=== PATIENT | male | born 1945 | race Caucasian/White ===

== ENCOUNTER → 2018-10-04 | Outpatient (CLI) | payer OTHER ==
[~2018-10-04] MED LIST: ASPIRIN325 PO; ASPIRIN81 M2 PO; BAYER CHEWABLE81 MG PO; CENTRUM SILVER1 EAC4 PO; CEPHALEXIN 500500 M1 PO; CO Q-10100 MG PO; COZAAR 50 MG TA50 MG PO; COZAAR100 MG PO; CYTOXAN IV; DOCETAXEL IV; EFFIENT10 MG PO; FUROSEMIDE PO; KLOR-CON 10 ER10 MEQ PO; LIPITOR40 MG PO; MECLIZINE HCL12.5 MG PO; MELADOX3 MG PO; METOPROLOL SUCC25 M1 PO; NITROGLYCERIN0.4 MG SUBLING; NOLVADEX10 MG PO; NORCO 5-325 TA1 EACH PO; PROMETHAZINE-C120 ML PO; SUPER B COMPLE1 EAC3 PO; TYLENOL EX-STR500 M2 PO; TYLENOL325 MG PO; ZOFRAN ODT4 MG PO; ZPAK PO
== END ==
LOC: ULTRA 13:37
DX: R22.1 Localized swelling, mass and lump, neck (principal)

== ENCOUNTER → 2018-10-10 | Outpatient (CLI) | payer OTHER ==
--- NOTE | ~2018-10-10 | PATH ---
[facility] [place] [address] PATHOLOGY RPT PROCEDURE Name: JEANINE DUBOSE Room #: REG [facility]#: [id number] Admission: 10/10/18 Date of : 45 Discharge: Report #: [id number] Path Case #: [id number] Note LCA Accession Number: [id number] TESTS RESULT FLAG UNITS REF RANGE LAB Clinician Provided Cytology Information No. of containers..01 ThinPrep Vial Source: 01 RT SUPERIOR PAROTID DIAGNOSIS: 02 RT SUPERIOR PAROTID, FINE NEEDLE ASPIRATION NEGATIVE FOR MALIGNANT CELLS. RED BLOOD CELLS ARE PRESENT. THIS INTERPRETATION INCLUDES EVALUATION OF A CELL BLOCK. GROUPS OF ACINAR CELLS, COMPATIBLE WITH SALIVARY GLAND PARENCHYMAL CELLS. Comment: Examination shows few groups of acinar cells. Stroma or matrix is not identified in the background. The cells are bland with no definite features to suggest malignant cells. The cells may represent salivary gland cells rather than a neoplasm. Sample may not be risk control representative; please correlate clinically and follow up as indicated. Signed out by: 02 Giulia Agudelo MD, Pathologist NPI- [id number] Performed by: 01 Aubrie Laughlin, Wharf Hand ([facility]) Gross description: 01 6ML, PINK, CLOUDY /LCS FLAG LEGEND: L-Low Normal,H-High Normal,LL-Alert Low,HH-Alert High <-Panic Low,>-Panic High,A-Abnormal,AA-Critical Abnormal Performed at: 01 [facility] [address] [place] [address] Ten Bonilla MD, [address] [address] Giulia Agudelo MD, Specimen Comment: A courtesy copy of this report has been sent to Specimen Comment: [phone]. Specimen Comment: Report sent to Performed at: [address] [address] PATHOLOGY RPT PROCEDURE Name: JEANINE DUBOSE Room #: REG RACHEAL Atkinson#: [id number] Admission: 10/10/18 Date of : 45 Discharge: Report #: [id number] Path Case #: [id number] [address], [place], [place] [id number] MD Ten Bonilla MD Phone: [phone]
--- NOTE | ~2018-10-10 | PATH ---
[facility] [address] [place] [address] PATHOLOGY RPT PROCEDURE Name: JEANINE DUBOSE Room #: REG [facility]#: [id number] Admission: 10/10/18 Date of : 45 Discharge: Report #: [id number] Path Case #: [id number] Note LCA Accession Number: [id number] TESTS RESULT FLAG UNITS REF RANGE LAB Clinician Provided Cytology Information No. of containers..01 ThinPrep Vial Source: RT PAROTID INF DIAGNOSIS: 02 RIGHT PAROTID INF, FINE NEEDLE ASPIRATION INADEQUATE, INSUFFICIENT CELLS FOR STUDY. ESSENTIALLY ACELLULAR SPECIMEN. CELL BLOCK PREPARED AND EXAMINED. Comment: Examination of multiple smears shows a rare single group of acinar-like cells. There is no matrix or stroma. Findings are inconclusive. Please correlate clinically. Signed out by: 02 Giulia Agudelo MD, Pathologist NPI- [id number] Performed by: 01 Aubrie Laughlin, Mortgage Loan Officer ([facility]) Gross description: 01 22ML, PINK, CLOUDY /LCS FLAG LEGEND: L-Low Normal,H-High Normal,LL-Alert Low,HH-Alert High <-Panic Low,>-Panic High,A-Abnormal,AA-Critical Abnormal Performed at: [address] [place] [address] Ten Bonilla MD, [address] [place] [id number] Giulia Agudelo MD, Specimen Comment: A courtesy copy of this report has been sent to Specimen Comment: [phone]. Specimen Comment: Report sent to Performed at: [address], [place], [place] [id number] MD Ten Bonilla MD Phone: [phone]
== END | disposition home or self-care (01) ==
LOC: ULTRA 09:15
DX: K11.8 Other diseases of salivary glands (principal); E11.9 Type 2 diabetes mellitus without complications; I25.10 Atherosclerotic heart disease of native coronary artery without angina pectoris; Z88.6 Allergy status to analgesic agent; Z79.82 Long term (current) use of aspirin; Z79.899 Other long term (current) drug therapy; Z85.3 Personal history of malignant neoplasm of breast; Z82.49 Family history of ischemic heart disease and other diseases of the circulatory system; Z79.4 Long term (current) use of insulin

== ENCOUNTER → 2020-07-09 | Outpatient (CLI) | payer OTHER | LOC: SJCVC 09:32 | PROVIDERS: ATTEND Internal Medicine Cardiovascular Disease | DX: R94.31 Abnormal electrocardiogram [ECG] [EKG] (principal); I25.10 Atherosclerotic heart disease of native coronary artery without angina pectoris; I73.9 Peripheral vascular disease, unspecified; E78.00 Pure hypercholesterolemia, unspecified; I10 Essential (primary) hypertension; E11.9 Type 2 diabetes mellitus without complications; R55 Syncope and collapse; E78.2 Mixed hyperlipidemia; Z79.899 Other long term (current) drug therapy; Z87.891 Personal history of nicotine dependence ==

== ENCOUNTER 2020-07-15 08:35 | Observation (INO) | payer OTHER ==
[~2020-07-15] VITALS: Ht 175.3 cm; Wt 97.5 kg
[2020-07-15 09:00] VITALS: BP 140/73
[2020-07-15] MEDS ORDERED: GLIMEPIRIDE4 MG PO (09:20)
[2020-07-15] MEDS ORDERED: LEVO-T50 MCG PO (09:21)
[2020-07-15] MEDS ORDERED: TRESIBA100 UNIT/1 SUBQ (09:22)
[2020-07-15] MEDS ORDERED: VITAMIN D3-ALO1 EACH PO (09:23)
--- NOTE | 2020-07-15 13:24 | 2DMMODE ---
[facility] [place] [address] 2 D/M-MODE ECHOCARDIOGRAM Name: JEANINE DUBOSE Room #: REG [facility] [place]#: [id number] Admission: 07/15/20 Attend Phys: Sujit Owens MD, Discharge: Date of : 45 Report #: [id number] THIS REPORT FOR: cc: Wesley Taveras MD, Steven E. MD Mancuso, Gerald M. MD [facility] ~ APPROVED REPORT Study performed: 07/15/2020 12:44:38 EXAM: Comprehensive 2D, Doppler, and color-flow Echocardiogram Patient Location: CV holding Status: routine BSA: 2.12 HR: 64 bpm BP: 140/73 mmHg Rhythm: NSR/arrhythmia Indications CAD, syncope. Status post angiogram with PCI. Hx: Prior stents, HTN, HLP, DM, PVD. 2D Dimensions RVDd: 40.72 mm IVSd: 11.15 (7-11mm) LVOT Diam: 20.43 (18-24mm) LVDd: 42.95 mm PWd: 9.30 (7-11mm) Ascending Ao: 31.73 (22-36mm) LVDs: 28.30 (25-40mm) Aortic Root: 33.08 mm Volumes Left Atrial Volume (Systole) Single Plane 4CH: 48.61 mL Single Plane 2CH: 72.60 mL LA ESV Index: 31.00 mL/m2 Aortic Valve AoV Peak Rolan.: 1.58 m/s AO Peak Gr.: 9.95 mmHg LVOT Max P.89 mmHg LVOT Max V: 1.31 m/s BEE Vmax: 2.73 cm2 Mitral Valve E/A Ratio: 0.9 [facility] [place] [address] 2 D/M-MODE ECHOCARDIOGRAM Name: JEANINE DUBOSE Room #: [facility]#: [id number] Admission: 07/15/20 Attend Phys: Sujit Owens, Discharge: Date of : 45 Report #: [id number] MV Decel. Time: 226.63 ms MV E Max Rolan.: 0.80 m/s MV A Rolan.: 0.93 m/s MV PHT: 65.72 ms IVRT: 103.81 ms Pulmonary Valve PV Peak Rolan.: 1.04 m/s PV Peak Gr.: 4.31 mmHg Pulmonary Vein P Vein S: 0.59 m/s P Vein A: 0.31 m/s P Vein D: 0.40 m/s P Vein A Dur.: 124.6 msec P Vein S/D Ratio: 1.48 Tricuspid Valve TR Peak Rolan.: 1.95 m/s RAP Estimate: 5.00 mmHg TR Peak Gr.: 15.26 mmHg PA Pressure: 20.00 mmHg Left Ventricle The left ventricle is normal size. There is normal LV segmental wall motion. Mild basal septal hypertrophy is present. Left ventricular systolic function is normal. LVEF is 55-60%. Mild diastolic dysfunction is present (impaired relaxation pattern). Right Ventricle The right ventricle is normal size. The right ventricular systolic function is normal. Atria The left atrium size is normal. The right atrium size is normal. Aortic Valve The aortic valve is normal in structure; mildly calcified. Trace to mild aortic regurgitation. There is no aortic valvular stenosis. Mitral Valve The mitral valve is normal in structure. There is no mitral valve regurgitation noted. No evidence of mitral valve stenosis. Tricuspid Valve The tricuspid valve is normal in structure. Trace tricuspid regurgitation. Estimated PAP is 20mmHg. [address] [address] 2 D/M-MODE ECHOCARDIOGRAM Name: DUBOSEJEANINE Room #: [facility] [place]#: [id number] Admission: 07/15/20 Attend Phys: Sujit Owens, Discharge: Date of : 45 Report #: [id number] Pulmonic Valve The pulmonary valve is normal in structure. Mild pulmonic regurgitation. Great Vessels The aortic root is normal in size. The ascending aorta is normal in size. IVC is normal in size and collapses >50% with inspiration. Pericardium There is no pericardial effusion. <Conclusion> The left ventricle is normal size. Mild basal septal hypertrophy is present. LVEF is 55-60%. Mild diastolic dysfunction is present (impaired relaxation pattern). The right ventricle is normal size. The left atrium size is normal. The aortic valve is normal in structure; mildly calcified. Trace to mild aortic regurgitation. There is no mitral valve regurgitation noted. Trace tricuspid regurgitation. Estimated PAP is 20mmHg. The aortic root is normal in size. There is no pericardial effusion. <ELECTRONICALLY SIGNED> By: Sujit Owens MD, FACC 07/15/20 1324 23 132 Sujit Owens MD, FACC /INF
--- NOTE | 2020-07-15 17:17 | CATHLAB ---
[facility] [place] [address] INVASIVE PROCEDURE REPORT Name: JEANINE DUBOSE Room #: REG RACHEAL [facility]#: [id number] Admission: 07/15/20 Attend Phys: Sujit Owens MD, Discharge: Date of : 45 Report #: [id number] THIS REPORT FOR: cc: Wesley Taveras MD, Steven E. MD Mancuso, Gerald M. MD [facility] ~ APPROVED REPORT Study performed: 07/15/2020 09:06:12 Patient Details The patient is a 75 year-old male Event Personnel Sujit Owens Powersaw Supervisor, Jenna Park RT(R)() Monitor, Shira Mccormack Scrub, Zuleima Gonzalez RTR Scrub, Carissa Higginbotham RN corporate financial analyst Performed Art Access - R femoral artery* Left Heart Cath w/or w/o Coronaries [id number] [facility] [address] w/wo Plasty Single RCA 271433 Aortogram Abdominal Peripheral Angio 010785 Hemostasis w/ Mynx 90361 Initial Mod Sed Same Phys/QHP Gr5y 946699 28446 Mod Sed Same Phys/QHP Ea 116816 Procedure Narrative The patient was brought urgently to the Cardiac Catheterization Laboratory and was prepped and draped in a sterile manner. The Right Groin^ was infiltrated with 1% Lidocaine subcutaneous anesthesia. A PINNACLE 6FR Sheath #[id number] sheath was inserted into the RFA 6F^. Coronary angiography was performed using coronary diagnostic catheters. The right coronary system was accessed and visualized with a 3DRC catheter. The left coronary system was accessed and visualized with a JL4 catheter. The left ventricle was accessed and visualized with a PIGTAIL catheter. Left ventriculogram was performed in 30 degree projection. Closure device was deployed with a 6 Fr MYNXGRIP 6/7F #[id number]. The patient tolerated the procedure well and there were no complications associated with the procedure. There was no hematoma. Intraoperative Conscious Sedation Fentanyl 50 mcg Versed 1 mg Fluoro Time: 11.30 minutes [facility] [address] [place] [address] INVASIVE PROCEDURE REPORT Name: JEANINE DUBOSE Lay [id number] Admission: 07/15/20 Attend Phys: Sujit Owens, Discharge: Date of : 45 Report #: [id number] Dose: DAP 66067.60 cGycm2 4091 mGy Contrast Type and Amount: Omnipaque 345 ml Hemodynamics The aortic pressure is 160/81 mmHg with a mean of 111 mmHg. The left ventricular pressure is 168 mmHg with a mean of 13 mmHg. The left ventricular end diastolic pressure is 27 mmHg. PCI Technique Lesion Percutaneous coronary intervention was performed on the proximal right coronary artery. BALLOON DILATION A Balloon catheter Sprinter OTW 2.5 x 12 #[id number] was inserted and inflated up to 8.00atm for 23seconds. Additional Inflation: 8.00atm for 21seconds. STENT DEPLOYMENT A stent RESOLUTE SALOME OTW 2.75 X 15 #[id number] was inserted and inflated up to 16.00atm for 26seconds. Additional Inflation: 20.00atm for 26seconds. POST STENT DEPLOYMENT BALLOON DILATION A Balloon catheter TREK NC OTW 3.25 X 12 #[id number] was inserted and inflated up to 14.00atm for 19seconds. Additional Inflation: 14.00atm for 19seconds. Additional Inflation: 16.00atm for 19seconds. Conclusion #1. Successful PTCA stent of ostial dominant RCA stenosis of 80 to 90% to 0% placement of a 2.75 x 15 Salome resolute drug-eluting stent postdilated 3.25 mm PRANAV grade III flow #2 left main short free of disease giving rise to LAD and circumflex #3 the LAD is mildly calcified with mild irregularities that extends around the apex. No occlusive disease #4 circumflex OM nondominant moderate in distribution with mild irregularity #5 dominant right coronary had the high-grade ostial proximal disease intervened on as stated in #1. #6 normal left ventricular size and systolic function EF 60% #7 abdominal aorta is intact with mild irregularity no aneurysm formation. Renal arteries mildly diseased. Recommendations and plan: Continue aggressive risk factor modification. Dual antiplatelet therapy has been initiated. Patient [address] [address] INVASIVE PROCEDURE REPORT Name: DUBOSEJEANINE L Room #: REG CHELI Atkinson#: [id number] Admission: 07/15/20 Attend Phys: Sujit Owens, Discharge: Date of : 45 Report #: [id number] transferred to CCU in stable condition. Follow post coronary stent protocol. <ELECTRONICALLY SIGNED> By: Sujit Owens MD, FACC 07/15/201715 15 15 Sujit Owens MD, FACC /INF
[2020-07-15 20:36] VITALS: BP 123/66
[2020-07-16 00:45] VITALS: BP 140/80
--- NOTE | 2020-07-16 02:10 | NUR ---
PT ARRIVED TO THE FLOOR AROUND 2014, PT IS AWAKE, ALERT AND ORIENTEDX4, SR ON THE MONITOR, ADMISSION ASSESSMENTS CHARTED, DRESSING TO THE RIGHT GROIN CDI, DENIES PAIN OR SOB, STATED USING CPAP AT NIGHT FOR SLEEP APNEA AT HOME, O2 AT 2L VIA NASAL CANULLA INITIATED, BS STABLE INITIATED SLIDING SCALE, PT IS RESTING IN BED AT THIS TIME, NO ACUTE DISTRESS NOTED, WILL CONTINUE TO MONITOR
[2020-07-16 04:45] VITALS: BP 154/76
[2020-07-16 05:40] LABS: HEMATOCRIT 42.4 % (42.0-52.0); HEMOGLOBIN 14.8 gm/dL (14.0-18.0); MCH 32.4 pg (26.0-34.0); MCHC 34.8 g/dL (28.0-37.0); MCV 92.9 fL (80.0-100.0); RBC 4.56 mil/uL (4.50-6.00); RDW 13.2 % (10.5-14.5); WBC 9.2 thou/uL (4.0-11.0)
[2020-07-16 06:28] LABS: CALCIUM 8.4 mg/dL (8.5-10.1); POTASSIUM 3.6 mmol/L (3.5-5.1); TOTAL BILIRUBIN 0.7 mg/dL (0.2-1.0); TOTAL PROTEIN 5.9 g/dL (6.4-8.2); TROPONIN-I 0.08 ng/mL (<0.06)
[2020-07-16 07:30] VITALS: BP 150/76
[2020-07-16] MEDS ORDERED: BAYER CHEWABLE81 MG PO (08:15)
[2020-07-16] MEDS ORDERED: EFFIENT10 MG PO (08:15)
--- NOTE | 2020-07-16 08:27 | EKG ---
[facility] [place] [address] ELECTROCARDIOGRAM REPORT Name: JEANINE DUBOSE Room #: 217-[facility] M.R.#: [id number] Admission: 07/15/20 Attend Phys: Sujit Owens MD, Discharge: Date of : 45 Report #: [id number] THIS REPORT FOR: cc: Wesley Taveras MD, Steven E. MD Lundgren,Eleazar Mahmood MD [facility] ~ THIS REPORT FOR: //name// [facility] Test Date: 2020-07-16 Test Time: 07:09:37 Pat Name: JEANINE DUBOSE Department: Room: 217 Gender: M Employment Manager: WILLY : 1945 Requested By: Sujit Owens Order Number: [id number] MD: Eleazar Varghese Measurements Intervals Walker Rate: 71 P: 70 MO: 169 QRS: 10 QRSD: 103 T: 30 QT: 381 QTc: 414 Interpretive Statements Sinus rhythm Normal tracing Compared to ECG 05/14/2014 21:53:52 Septal Q waves are no longer present Electronically Signed On 07-16-2020 8:27:36 CDT by Eleazar Varghese [email or web address] <ELECTRONICALLY SIGNED> By: Eleazar Varghese MD, [facility] 07/16/20 0827 0709 Eleazar Varghese MD, [facility] /EPI
[2020-07-16 10:02] VITALS: BP 150/76
--- NOTE | 2020-07-16 10:52 | NUR ---
PT CARE ASSUMED APPROX 0700. ASSESSMENT CHARTED. PT DENIES PAIN AND SOA. VSS. UP WITH STEADY GAIT. EXTERNAL DIRECTOR ADVANCED PLACED BY [facility] NURSE THIS AM. DISCHARGING AT THIS TIME. DISCHARGE EDUCATION DONE WITH PT BY AND REINFORCED BY THIS NURSE. PT DENIES QUESTIONS OR CONCERNS REGARDING POST HOSPITAL CARES. IV OUT, TELE OFF. WILL ESCORT PT OUT TIMELY.
== END 2020-07-16 11:00 | disposition home or self-care (01) ==
LOC: CATH 08:35 → 2N 20:06 → CATH 20:07 → 2N 07-16 11:00
PROVIDERS: ADMIT Internal Medicine Cardiovascular Disease; ATTEND Internal Medicine Cardiovascular Disease
DX: I25.10 Atherosclerotic heart disease of native coronary artery without angina pectoris (principal); I10 Essential (primary) hypertension; E11.9 Type 2 diabetes mellitus without complications; E78.5 Hyperlipidemia, unspecified; R55 Syncope and collapse; R00.1 Bradycardia, unspecified; I65.29 Occlusion and stenosis of unspecified carotid artery; G47.33 Obstructive sleep apnea (adult) (pediatric); I25.2 Old myocardial infarction; Z79.84 Long term (current) use of oral hypoglycemic drugs; Z79.82 Long term (current) use of aspirin; Z79.899 Other long term (current) drug therapy

== ENCOUNTER → 2020-08-13 | Outpatient (CLI) | payer OTHER ==
[~2020-08-13] MED LIST changes: +GLIMEPIRIDE4 MG PO; +LEVO-T50 MCG PO; +TRESIBA100 UNIT/1 SUBQ; +VITAMIN D3-ALO1 EACH PO
== END ==
LOC: SJCVC 12:45
PROVIDERS: ATTEND Internal Medicine Cardiovascular Disease
DX: I25.10 Atherosclerotic heart disease of native coronary artery without angina pectoris (principal); I10 Essential (primary) hypertension; E78.00 Pure hypercholesterolemia, unspecified; I73.9 Peripheral vascular disease, unspecified; Z95.5 Presence of coronary angioplasty implant and graft; Z79.899 Other long term (current) drug therapy; Z87.891 Personal history of nicotine dependence; Z87.898 Personal history of other specified conditions

== ENCOUNTER → 2020-09-20 | Outpatient (CLI) | payer OTHER | LOC: SJCVC 15:10 | PROVIDERS: ATTEND Internal Medicine Cardiovascular Disease | DX: I25.10 Atherosclerotic heart disease of native coronary artery without angina pectoris (principal); I10 Essential (primary) hypertension; E78.00 Pure hypercholesterolemia, unspecified; Z98.61 Coronary angioplasty status; E11.9 Type 2 diabetes mellitus without complications; I77.9 Disorder of arteries and arterioles, unspecified; Z79.899 Other long term (current) drug therapy; Z87.891 Personal history of nicotine dependence ==

== ENCOUNTER → 2020-11-11 | Outpatient (CLI) | payer OTHER | LOC: SJCVC 14:15 | PROVIDERS: ATTEND Internal Medicine Cardiovascular Disease | DX: I25.10 Atherosclerotic heart disease of native coronary artery without angina pectoris (principal); I77.9 Disorder of arteries and arterioles, unspecified; I10 Essential (primary) hypertension; E78.00 Pure hypercholesterolemia, unspecified; E11.9 Type 2 diabetes mellitus without complications; E78.5 Hyperlipidemia, unspecified; Z85.3 Personal history of malignant neoplasm of breast; Z87.891 Personal history of nicotine dependence; Z79.4 Long term (current) use of insulin; Z79.82 Long term (current) use of aspirin; Z79.899 Other long term (current) drug therapy; Z88.5 Allergy status to narcotic agent ==

== ENCOUNTER → 2021-06-20 | Outpatient (CLI) | payer OTHER | LOC: SJCVC 11:25 | PROVIDERS: ATTEND Internal Medicine Cardiovascular Disease | DX: I25.10 Atherosclerotic heart disease of native coronary artery without angina pectoris (principal); R07.9 Chest pain, unspecified; E78.00 Pure hypercholesterolemia, unspecified; I10 Essential (primary) hypertension; I77.9 Disorder of arteries and arterioles, unspecified; E11.9 Type 2 diabetes mellitus without complications; E78.2 Mixed hyperlipidemia; Z95.5 Presence of coronary angioplasty implant and graft; Z88.5 Allergy status to narcotic agent; Z79.899 Other long term (current) drug therapy; Z87.891 Personal history of nicotine dependence ==

== ENCOUNTER 2021-07-17 05:57 | Emergency (ER) | payer OTHER ==
[~2021-07-17] VITALS: Ht 175.3 cm; Wt 93.9 kg
[2021-07-17 06:25] LABS: ABSOLUTE NEUTROPHILS 5.5 thou/uL (1.4-8.2); BASOPHILS 0.8 % (0.0-2.0); EOSINOPHILS 3.1 % (0.0-3.0); HEMATOCRIT 44.5 % (42.0-52.0); HEMOGLOBIN 15.7 gm/dL (14.0-18.0); LYMPHOCYTES 26.1 % (24.0-44.0); MCHC 35.4 g/dL (28.0-37.0); MCV 93.2 fL (80.0-100.0); MONOCYTES 12.8 % (1.0-8.0); PLATELET COUNT 212 thou/uL (150-400); POLYS 57.2 % (36.0-66.0); RBC 4.77 mil/uL (4.50-6.00); RDW 13.4 % (10.5-14.5); WBC 9.5 thou/uL (4.0-11.0)
[2021-07-17 06:32] LABS: CALCIUM 9.3 mg/dL (8.5-10.1); CREATININE 1.3 mg/dL (0.7-1.3); POTASSIUM 3.6 mmol/L (3.5-5.1)
[2021-07-17 06:43] LABS: ALBUMIN 3.7 g/dL (3.4-5.0); MAGNESIUM 2.3 mg/dL (1.8-2.4); TOTAL BILIRUBIN 0.5 mg/dL (0.2-1.0); TOTAL PROTEIN 7.4 g/dL (6.4-8.2)
[2021-07-17 09:10] LABS: URINE BILIRUBIN NEGATIVE (Negative); URINE BLOOD NEGATIVE (Negative); URINE CLARITY CLEAR; URINE COLOR YELLOW; URINE GLUCOSE-RANDOM* NEGATIVE (Negative); URINE KETONES NEGATIVE (Negative); URINE LEUKOCYTES-REFLEX NEGATIVE (Negative); URINE NITRITE-REFLEX NEGATIVE (Negative); URINE PROTEIN (DIPSTICK) NEGATIVE (Negative); URINE SPECIFIC GRAVITY <= 1.005 (1.005-1.035)
[2021-07-17 11:20] VITALS: BP 116/62
--- NOTE | 2021-07-17 12:35 | EKG ---
[facility] [place] [address] ELECTROCARDIOGRAM REPORT Name: JEANINE DUBOSE [facility] [id number] Admission: 07/17/21 Attend Phys: Discharge: 07/17/21 Date of : 45 Report #: [id number] [facility] ED Test Date: 2021-07-17 Test Time: 05:58:38 Pat Name: JEANINE DUBOSE Department: Room: Gender: M Industrial Boilermaker: UNKNOWN.... : 1945 Requested By: Aliza Sin Order Number: [id number] MD: Matthew Lomeli Measurements Intervals [place] Rate: 54 P: 64 AL: 179 QRS: 33 QRSD: 97 T: 30 QT: 421 QTc: 399 Interpretive Statements Sinus rhythm Probable left atrial enlargement Low voltage, precordial leads Compared to ECG 07/16/2020 07:09:37 Low QRS voltage now present ST (T wave) deviation now present Electronically Signed On 07-17-2021 12:35:09 CDT by Matthew Lomeli [email or web address] <ELECTRONICALLY SIGNED> By: Matthew Lomeli MD, [facility] 07/17/21 1235 0558 0558 Matthew Lomeli MD, [facility] /EPI
== END 2021-07-17 11:30 | disposition home or self-care (01) ==
LOC: ER 05:57
DX: R55 Syncope and collapse (principal); R10.30 Lower abdominal pain, unspecified; E11.9 Type 2 diabetes mellitus without complications; Z79.4 Long term (current) use of insulin; Z79.899 Other long term (current) drug therapy; Z88.6 Allergy status to analgesic agent

== ENCOUNTER → 2021-08-19 | Outpatient (CLI) | payer OTHER | LOC: SJCVCIMAG 08:21 | PROVIDERS: ATTEND Internal Medicine Cardiovascular Disease | DX: I25.10 Atherosclerotic heart disease of native coronary artery without angina pectoris (principal); E78.5 Hyperlipidemia, unspecified; E11.9 Type 2 diabetes mellitus without complications; Z98.61 Coronary angioplasty status ==

== ENCOUNTER → 2021-10-27 | Outpatient (CLI) | payer OTHER ==
[~2021-10-27] MED LIST changes: +ASA81BEC PO; +CO Q-10 100 MG1 EACH PO; -CO Q-10100 MG PO; +EDARBYCLOR 40-1 EAC1 PO; +LEVO-T75 MCG PO; +LIPITOR 20 MG T20 M1 PO; +NORVASC5 MG PO; +VITAMIN D325 MC3 PO
== END ==
LOC: LAB 05:39
PROVIDERS: ATTEND Student in an Organized Health Care Education/Training Program
DX: Z01.812 Encounter for preprocedural laboratory examination (principal); Z20.822 Contact with and (suspected) exposure to COVID-19